=== PATIENT | female | born 1990 | race Caucasian/White ===

== ENCOUNTER 2021-01-31 10:40 | Outpatient (RCR) | payer OTHER, SELFPAY ==
[2021-02-01] MEDS: RHO(D) IMMUNE GLOBULIN 300 MCG/2 ML SYRINGE IM (08:24)
== END 2021-05-01 23:59 | disposition home or self-care (01) ==
LOC: ANHLAB 10:40
PROVIDERS: PCP Physician Assistant; Visit Provider Obstetrics & Gynecology
DX: Z29.13 Encounter for prophylactic Rho(D) immune globulin (principal); O36.0190 Maternal care for anti-D [Rh] antibodies, unspecified trimester, not applicable or unspecified; Z3A.00 Weeks of gestation of pregnancy not specified
CPT/HCPCS: 36415; 85461; 86880; 90384; 96372; J2790

== ENCOUNTER 2021-04-30 10:45 | Outpatient (RCR) | payer OTHER, SELFPAY ==
--- NOTE | ~2021-04-30 | US_ITS ---
EXAMINATION: US OB follow up w [facility] DATE: 04/30/2021 11:53 INDICATION: Postdates, third trimester TECHNIQUE: Real-time pelvic ultrasound was performed. The interpreting radiologist was not present fo r the study. COMPARISON: None. FINDINGS: There is a single living fetus in vertex presentation. The placenta is anterior. heart rate is 148 beats per minute (bpm). The amniotic fluid index is 8.9 cm which is normal Biophysical profile performed by the technologist: breathing (30 sec sustained breathing in 30 minutes): 2 out of 2 movement (3 gross body movements in 30 minutes): 2 out of 2 tone (one episode of nkjxsap-qzvjwkfks-liofluc limb movement): 2 out of 2 Amniotic fluid pocket (2 cm): 2 out of 2 Total score: 8 out of 8 The following biometric data were obtained: Biparietal diameter (BPD): 9.2 cm; head circumference (HC): 33.8 cm; abdominal circumference (AC): 35 .4 cm; femur length (FL): 7.7 cm. These measurements are concordant. Estimated weight is 3688 g +/- 553 g, which correlates with the 46th percentile when 04/25/2021 is used as estimated date of delivery. As single measurements, these parameters are each equal to the following estimated gestational ages w ith ranges of +/- 2 standard deviations: BPD: 37 weeks 4 days ( 34 weeks 3 days - 40 weeks 6 days). HC: 38 weeks 6 days ( 36 weeks 1 days - 41 weeks 4 days). AC: 39 weeks 2 days ( 36 weeks 2 days - 42 weeks 3 days). FL: 39 weeks 4 days ( 36 weeks 3 days - 42 weeks 5 days). estimated gestational age based solely on measurements from this exam is 38 weeks 6 days +/- 2 weeks 5 days. IMPRESSION: 1. Single living fetus in vertex presentation. 2. Biophysical profile 8 out of 8. 3. Estimated weight is 3688 g +/- 553 g, which correlates with the 46th percentile when 04/25/20 21 is used as estimated date of delivery. Reviewed, dictated and finalized at location A. IMPRESSION: 1. Single living fetus in vertex presentation. 2. Biophysical profile 8 out of 8. 3. Estimated weight is 3688 g +/- 553 g, which correlates with the 46th p ercentile when 04/25/2021 is used as estimated date of delivery.
[2021-04-30 12:10] VITALS: BP 132/75; PULSE 68
== END 2021-05-14 10:09 | disposition home or self-care (01) ==
LOC: ANHOBOP 10:45
PROVIDERS: PCP Physician Assistant; Visit Provider Obstetrics & Gynecology
DX: O48.0 Post-term pregnancy (principal); Z3A.40 40 weeks gestation of pregnancy
CPT/HCPCS: 59025; 76816; 76819

== ENCOUNTER 2021-05-07 14:02 | Inpatient (IN) | payer OTHER, SELFPAY ==
[2021-05-07] VITALS (7 sets, daily range): BP systolic 136–142; BP diastolic 80–81; PULSE 93–124; RESP 16–18; TEMP 36.4–36.8; BMI 39.2
[2021-05-07 16:35] LABS: Basophils Percent Auto 0.5 % (0.2-1.2); Eosinophils Absolute Auto 0.1 K/mm3 (0-0.3); Eosinophils Percent Auto 0.7 % (0-4.4); Hemoglobin 11.2 g/dL (12.0-15.0); Immature Granulocyte Absolute 0.03 K/mm3 (0.00-0.031); Immature Granulocyte Percent A 0.3 % (0-0.5); Lymphocytes Absolute Auto 1.12 K/mm3 (0.9-3.2); Lymphocytes Percent Auto 12.6 % (18.3-44.2); Mean Corpuscular Hemoglobin 27.9 pg (26-34); Mean Corpuscular Volume 87.1 fl (80-100); Mean Platelet Volume 12.7 fl (7.4-10.4); Monocytes Absolute Auto 0.5 K/mm3 (0.1-0.6); Monocytes Percent Auto 5.7 % (2.6-8.5); Neutrophils Absolute Auto 7.1 K/mm3 (1.3-6.7); Neutrophils Percent Auto 80.2 % (45.5-73.1); Platelet Count Result 166 k/mm3 (150-375); Red Blood Count 4.02 M/mm3 (4.2-5.4); Red Cell Distribution Width 14.8 % (11.5-14.5); White Blood Count 8.9 K/mm3 (4.5-10.0)
--- NOTE | 2021-05-07 17:28 | P.PNAN_ITS ---
Anes - Eval Pre Procedure Procedure: labor epidural Date/Time: 05/07/21 17:28 Surgeon: elan Preop Diagnosis: pain during labor Pre Op Diagnosis: contractions Patient Data Age: 30 Gender: F Height: 1.7 m Weight: 113.6 kg Last Vital Signs Temp 36.4 C 05/07/21 17:00 Allergies Allergy/AdvReac Type Severity Reaction Status Date / Time No Known Allergies Allergy Verified 03/25/21 13:48 Home Medications Medication Instructions Recorded Confirmed Type No Home Medications 05/07/21 05/07/21 History Laboratory Tests 05/07/21 05/07/21 16:04 16:04 WBC 8.9 K/mm3 K/mm3 (4.5-10.0) RBC 4.02 M/mm3 L M/mm3 (4.2-5.4) Hgb 11.2 g/dL L g/dL (12.0-15.0) Hct 35.0 % L % (37.0-47.0) MCV 87.1 fl fl (80-100) MCH 27.9 pg pg (26-34) MCHC 32.0 g/dl g/dl (32-36) RDW 14.8 % H % (11.5-14.5) Plt Count 166 k/mm3 k/mm3 (150-375) MPV 12.7 fl H fl (7.4-10.4) Immature Gran % (Auto) 0.3 % % (0-0.5) Neut % (Auto) 80.2 % H % (45.5-73.1) Lymph % (Auto) 12.6 % L % (18.3-44.2) Gilchrist % (Auto) 5.7 % % (2.6-8.5) Eos % (Auto) 0.7 % % (0-4.4) Baso % (Auto) 0.5 % % (0.2-1.2) Lymph # (Auto) 1.12 K/mm3 K/mm3 (0.9-3.2) Gilchrist # (Auto) 0.5 K/mm3 K/mm3 (0.1-0.6) Eos # (Auto) 0.1 K/mm3 K/mm3 (0-0.3) Baso # (Auto) 0.0 K/mm3 K/mm3 (0.0-0.1) Abs Immat Gran (auto) 0.03 K/mm3 K/mm3 (0.00-0.031) Absolute Neuts (auto) 7.1 K/mm3 H K/mm3 (1.3-6.7) Absolute Nucleated RBC 0.0 K/mm3 K/mm3 (0.0-0.012) Nucleated RBC % 0.0 % % (0.0-0.2) RPR Pending Patient hx anesthesia problems: none Family hx anesthesia problems: none [facility] Past Medical History Medical History (Updated 05/07/21 @ 17:29 by Sara Shelby CRNA) Obesity (BMI 30-39.9) Family History Family History (Updated 03/25/21 @ 13:51 by Oswald Clark RN) Grandparent Acute leukemia Father Lupus Hypertension Mother Lupus Social History Social History Smoking status: Never smoker Second hand tobacco smoke exposure: No Substance use: never Spiritual care concerns: No Exam Day of Procedure 05/07/21 17:28
[2021-05-07] MEDS: LACTATED RINGERS 1,000 ML 125 ML IV CONT (22:39)
[2021-05-08] VITALS (69 sets, daily range): BP systolic 91–174; BP diastolic 47–133; PULSE 52–114; RESP 16–18; TEMP 36.1–36.7; O2SAT 98–100
[2021-05-08] MEDS: LACTATED RINGERS 1,000 ML 125 ML IV CONT ×3 (02:01→08:26)
[2021-05-08] MEDS: OXYTOCIN 30 UNITS/NS 500 ML 30 UNITS/500 ML BAG IV CONT (04:56)
--- NOTE | 2021-05-08 08:44 | WPDOBADMIT ---
Obstetrics - Admit Note Admission Note: record reviewed. Additions to the history and/or subsequent changes in the physical findings follow. 30 y/o at 41 6/7 weeks here with contractions. Not in active labor, but NST showed a FHR deceleration last evening, so we have offered augmentation of labor. FHR has been normal since. GBS neg. AVSS NST reactive TOCO: contractions irregularly ABD soft, nontender, gravid, vertex EXT nontender Cervix 4/50/-2. AROM with clear fluid. Vertex.. A: IUP at 41 6/7 weeks with early labor. P: Oxytocin. Anticipate .
--- NOTE | 2021-05-08 12:52 | PM.OBPRVD ---
OB - Delivery Note Procedure Delivery date: 05/08/21 Procedure: Induction method: none Delivery augmentation: rupture of membranes and pitocin Delivery monitor: external FHT, external uterine and internal uterine Route of delivery: Laceration Description: None Specimen: Yes (cord blood) Quantitative Blood Loss (ml): 50 Anesthesia type: Epidural Disposition: PACU Complications: None Narrative: 30 y/o at 41 6/7 weeks gestation who presented to the hospital with contractions. Oxytocin was administered intravenously for labor augmentation. Amniotomy was performed with return of clear fluid. She received an epidural for pain control. Her labor progressed and her cervix dilated completely. She pushed with good effort and delivered the 's head to the perineum, followed by the body. The nose and mouth were bulb suctioned. After a delay, the cord was clamped and cut. The was handed off the field. Cord blood was collected. The placenta delivered spontaneously and was grossly normal in appearance. The usual 3 vessel cord was noted. The perineum was intact. Excellent hemostasis resulted as did excellent reapproximation of the normal anatomy. Needle and instrument counts were correct. The patient was taken to recovery room in stable condition. The went to the nursery in stable condition. I was present and scrubbed for the entire delivery. Baby Date of : 05/08/21 Time of : 12:15 Weeks of gestation at delivery: 41 Infant gender: Female Weight (pounds): 7 Weight (ounces): 6 presentation: vertex position: Left Occiput Anterior Placenta delivery description: Spontaneous and Normal Configuration cord vessel description: 3 Vessels and Delayed Cord Clamping score one minute: 8 score five minutes: 9
[2021-05-08] MEDS: OXYTOCIN 30 UNITS/NS 500 ML 30 UNITS/500 ML BAG 125 UNITS IV CONT (12:54)
--- NOTE | 2021-05-08 12:55 | PM.OBDSVD ---
DS: Admitting Diagnosis Discharge Date 05/10/21 Admitting Diagnosis IUP at 41 6/7 weeks Contractions DS: Discharge Diagnosis Discharge Diagnosis (1) (normal spontaneous vaginal delivery): Code(s): O80 - Encounter for full-term uncomplicated delivery Status: Acute OB - DS: Summary OB Procedures : None OB Procedures Intrapartum: Spontaneous Vag Delivery OB Procedures: : RHo (D) lg DS: Data Data Completed and Pending Labs on day of discharge: Labs from last 24 hours 05/07/21 05/07/21 05/07/21 16:04 16:04 16:04 WBC 8.9 RBC 4.02 L Hgb 11.2 L Hct 35.0 L MCV 87.1 MCH 27.9 MCHC 32.0 RDW 14.8 H Plt Count 166 MPV 12.7 H Immature Gran % (Auto) 0.3 Neut % (Auto) 80.2 H Lymph % (Auto) 12.6 L [place] % (Auto) 5.7 Eos % (Auto) 0.7 Baso % (Auto) 0.5 Lymph # (Auto) 1.12 [place] # (Auto) 0.5 Eos # (Auto) 0.1 Baso # (Auto) 0.0 Abs Immat Gran (auto) 0.03 Absolute Neuts (auto) 7.1 H Absolute Nucleated RBC 0.0 Nucleated RBC % 0.0 RPR Pending Blood Type B Negative Antibody Screen Positive Antibody Identification Anti-D Antigen Identification Cancelled GOPI, IgG Interpret Not Performed GOPI, Poly Interpret Negative GOPI, Complement Interp Not Performed Enhanced Crossmatch See Detail Discharge Plan Discharge Attending physician on discharge: Jose Martin Rogers Discharging Clinician: Jose Martin Rogers Anticipated Discharge Date/Time: 05/10/21 11:30 Patient Disposition: Home, Self-Care Activity: pelvic rest Diet: regular Discharge Instructions: Education: Mom and Baby Guide Given to: Mother Follow-Up: Call your delivering provider's office for an appointment to be seen in: 6 Weeks Mom and baby should come to the [facility] for the follow-up appointment. Appointment Date/Time: May 13, 2021 at 9:00 am What to expect at your follow-up visit: Physical Assessment Call [phone] if you are unable to keep your appointment time. BREAST CARE: * Wear a snug supportive bra. * For engorgement discomfort: Breast Feeding: * Apply warm moist washcloths * Express milk as needed to relieve engorgement * Wear loose clothing Bottle Feeding: * May apply ice packs * For sore nipples: * Identify correct latch-on * Apply warm moist washcloths before and after nursing * Air dry nipples after nursing * May apply Lansinoh cream to nipples ABDOMINAL INCISION: (if applicable) * Allow incision to air dry * Do NOT use lotions for powders on your incision * When showering, allow soap and water to run over the incision, but do not wash incision EPISIOTOMY/PERINEAL CARE: * Until bleeding stops, use your lilly bottle after urinating * Change your pad frequently throughout the day * You may take sitz baths several times a day (fill your bathtub with warm water and soak for 20 minutes.) Do NOT bathe in the water * No tub baths until seen by your physician - You may shower ACTIVITY: * Rest as much as possible. * Do not exercise or lift anything heavier than your baby (such as laundry or other children.) * Avoid stairs or driving as much as possible. * Do not put anything into the vagina. No douching, tampons, or sexual activity until seen by physician. NOTIFY PHYSICIAN IF YOU HAVE ANY QUESTIONS OR IF ANY OF THE FOLLOWING SYMPTOMS OCCUR: * If your episiotomy or incision becomes red, swollen, or more painful than what you have experienced in the hospital. * If your vaginal bleeding becomes foul smelling. * If your vaginal bleeding becomes more heavy than a period or if your bleeding changes from pink to bright red. However, you may pass an occasional walnut-sized clot once or twice for the first week . * If you experience a sharp, shooting pain in you calves. * If
--- NOTE | 2021-05-08 15:35 | PC.NURSE ---
Patient transferred to post room #290 per wheelchair from labor and delivery. Support person present. Oriented to unit, room, information board, rooming in, admission packet and security measures. Patient verbalizes understanding.
[2021-05-08] MEDS: IBUPROFEN 600 MG TABLET PO ×2 (15:51→22:26)
[2021-05-09] VITALS: BP 122/79; PULSE 89; RESP 16; TEMP 36.7; O2SAT 100
[2021-05-09 04:00] VITALS: BP 126/86; PULSE 71; RESP 16; TEMP 36.6; O2SAT 100
[2021-05-09 04:27] LABS: Hematocrit 29.6 % (37.0-47.0); Hemoglobin 9.6 g/dL (12.0-15.0)
[2021-05-09] MEDS: POLYSACCHARIDE IRON COMPLEX 150 MG CAPSULE PO ×2 (08:05→17:24)
[2021-05-09] MEDS: DOCUSATE SODIUM 100 MG CAPSULE PO ×2 (08:05→17:24)
[2021-05-09] MEDS: IBUPROFEN 600 MG TABLET PO ×3 (08:05→20:58)
[2021-05-09] MEDS: MULTIVIT/MIN/PREN/FOL AC/IRON TABLET 1 TAB PO (08:05)
[2021-05-09 08:55] VITALS: BP 133/86; PULSE 72; RESP 18; O2SAT 99
--- NOTE | 2021-05-09 09:52 | WPDANLDPN2 ---
Anes-Prog Note L&D Date/Time: 05/09/21 09:52 Comfortable throughout: labor and delivery Neuraxial method: epidural Epidural/Spinal procedure site: clean & non-tender Neuro status: Neuro function grossly intact. Cardiovascular status: normal Respiratory status: normal Airway patency: baseline Mental status: baseline Post-Op hydration status: normal Vital Signs: Last Vital Signs Temp 36.6 C 05/09/21 04:00 Pulse 72 05/09/21 08:55 Resp 18 05/09/21 08:55 BP 133/86 05/09/21 08:55 Pulse Ox 99 05/09/21 08:55 Pain score (VAS): 09/08 I/O: Intake & Output 05/08/21 05/09/21 05/09/21 23:59 07:59 15:59 Intake Total 450 Balance 450 Post-procedural complaints: none Patient feedback: Patient satisfied with anesthetic care.
--- NOTE | 2021-05-09 10:35 | PC.NURSE ---
Mother called out for assist with feeding, reporting has been sleepy and spitty during the night. Mother initiated pumping due to long periods between feedings and has supplemented. Infant had a large mucus spit up after feeding with formula. Infant is able to freely thrust tongue past gum ridge and flange both lips. Skin is intact on both nipples, no redness and bruising noted. Reviewed infant feeding cues, frequencies, duration of feedings, feeding elimination flow sheet, and signs of adequate intake. Demonstrated stimulation techniques to wake for feeding. Assisted with to breast. Reviewed positioning/alignment in cross cradle, holding breast in ?U? hold and guided asymmetrical latch on. Discussed rational for each. Infant able to latch correctly. Reviewed signs of a correct latch, effective nursing and suck swallow ratio. Infant nursed eagerly, with steady draws and frequent swallowing noted. Reviewed the difference of effective vs ineffective nursing. Suggested mother stimulate while feeding to increase stimulation, increase intake and to assist with maintaining deep latch. was able to maintain latch without discomfort to mother. Mother does not maintain U hold while feeding. Suggested mother return to hold if is unable to maintain latch or she has discomfort Demonstrated how to adjust latch more deeply while feeding. Nipple care reviewed of lanolin after feedings, warm compresses as needed. Discussed mother does not need to pump if is effective feeding 15 minutes every three hours. Instructed mother to call out for RN assistance if she is unable to latch infant for feeding or she has discomfort with nursing. Instructed feeding should be initiated three hours from start of last feeding or if feeding cues are noted before. Mother voiced understanding of information shared.
[2021-05-09 10:40] LABS: Rapid Plasma Reagin Non-Reactive (NonReactive)
[2021-05-09] MEDS: RHO(D) IMMUNE GLOBULIN 300 MCG/2 ML SYRINGE IM (11:42)
[2021-05-09 12:35] VITALS: BP 127/71; PULSE 69; RESP 18; TEMP 36.3; O2SAT 99
--- NOTE | 2021-05-09 12:46 | PM.OBPNVD ---
OB - PN: Subj Subjective Date/time seen: 05/09/21 12:46 Narrative: Pain OK. OB - PN: Obj Data Labs CBC & Chem 7: 05/09/21 03:12 Labs: Laboratory Results - last 24 hr 05/07/21 05/07/21 05/09/21 16:04 16:04 03:12 Hgb 9.6 L Hct 29.6 L RPR Non-reactive Blood Type Antibody Screen Antibody Identification Antigen Identification Cancelled GOPI, IgG Interpret GOPI, Poly Interpret GOPI, Complement Interp Screen Baby's Blood Type Baby's GOPI Doses of RhIg Required Enhanced Crossmatch See Detail 05/09/21 03:12 Hgb Hct RPR Blood Type B Negative Antibody Screen TNP Antibody Identification TNP Antigen Identification TNP GOPI, IgG Interpret Not Performed GOPI, Poly Interpret TNP GOPI, Complement Interp TNP Screen Negative Baby's Blood Type Ab pos Baby's GOPI Positive Doses of RhIg Required 1 Enhanced Crossmatch OB - PN A/P Plan Comments: A: PPD#1, doing well. P: Routine care. Exam Psych: Other: AVSS ABD soft, nontender, fundus firm EXT nontender
[2021-05-09 20:00] VITALS: BP 120/87; PULSE 76; RESP 16; TEMP 36.6; O2SAT 98
--- NOTE | 2021-05-10 07:11 | PM.OBPNVD ---
OB - PN: Subj Subjective Date/time seen: 05/10/21 07:11 Patient comments: no complaints and pain well controlled baby status: doing well and nursing well OB - PN: Obj Data Labs CBC & Chem 7: 05/09/21 03:12 Labs: Laboratory Results - last 24 hr 05/07/21 05/07/21 05/09/21 16:04 16:04 03:12 RPR Non-reactive Blood Type B Negative Antibody Screen TNP Antibody Identification TNP Antigen Identification Cancelled TNP GOPI, Poly Interpret TNP GOPI, Complement Interp TNP Screen Negative Baby's Blood Type Ab pos Baby's GOPI Positive Doses of RhIg Required 1 Enhanced Crossmatch See Detail OB - PN A/P Plan day: 2 Plan: routine care, discharge home and follow up 6 weeks Time Spent With Patient Time: Total time spent is greater than 50% in coordination of care (as documented) at patient's floor/unit and/or counseling patient: Time with patient: less than 15 minutes Review of Systems Review of Systems: All systems reviewed & are unremarkable except as noted in HPI and below Exam Const: General: no acute distress Eyes: General: appearance normal, both eyes and all related structures Neck: Neck: supple and no JVD Thyroid: thyroid normal Resp: Effort & Inspection: normal respiratory effort Auscultation: clear to auscultation bilaterally Cardio: Rate: regular rate Rhythm: regular rhythm GI: Inspection: non-distended GI Palp: Yes Soft to palpation, No Tenderness to palpation present (GI) and No Guarding due to palpation present (GI) Auscultation: normal bowel sounds : General: Yes bladder normal to palpation External Female Exam: normal external appearance Speculum Exam - Vagina: normal vaginal discharge and No vaginal bleeding Speculum Exam - Cervix: nontender Bimanual exam- vagina & uterus: bladder normal to palpation and No Cervical tenderness present OB/external & speculum: No vaginal bleeding Skin: General skin exam: no rashes or lesions noted Extrem: General: normal to inspection and no edema Psych: Mental Status: mental status grossly normal Affect: normal affect
[2021-05-10] MEDS: WITCH HAZEL 40 PADS 1 PAD TOPICAL (08:22)
[2021-05-10] MEDS: DOCUSATE SODIUM 100 MG CAPSULE PO (08:23)
[2021-05-10] MEDS: POLYSACCHARIDE IRON COMPLEX 150 MG CAPSULE PO (08:23)
[2021-05-10] MEDS: MULTIVIT/MIN/PREN/FOL AC/IRON TABLET 1 TAB PO (08:23)
[2021-05-10] MEDS: IBUPROFEN 600 MG TABLET PO (08:24)
[2021-05-10 08:27] VITALS: BP 130/86; PULSE 74; RESP 18; TEMP 36.2; O2SAT 100
[2021-05-13 08:40] VITALS: BP 128/72; PULSE 66; RESP 16; TEMP 36.7; O2SAT 98
== END 2021-05-10 11:53 | disposition home or self-care (01) | DRG 560 ==
LOC: ANHLDR 05-08 12:56 → ANHOB2 05-10 11:12 → ANHLDR 05-13 09:15 → ANHOB2 05-13 09:15
PROVIDERS: Obstetrics & Gynecology; Admitting Provider Student in an Organized Health Care Education/Training Program; PCP Physician Assistant; Visit Provider Obstetrics & Gynecology
DX: O76 Abnormality in fetal heart rate and rhythm complicating labor and delivery (principal); Z37.0 Single live birth; Z3A.41 41 weeks gestation of pregnancy
CPT/HCPCS: 36415; 85014; 85018; 85025; 85461; 86592; 86850; 86880; 86900; 86901; 86922; 90384; A9270; J2590; J2790; J2795; J7120

== ENCOUNTER 2021-06-13 13:30 | Outpatient (RCR) | payer OTHER, SELFPAY ==
--- NOTE | 2021-06-13 14:15 | PC.NURSE ---
IN 0945 OUT 1050 HISTORY: Pt. delivered at [facility] at 39 weeks. had no complications after delivery. Mother had no complications after delivery. Infant is now 36 days old. Infant appears to be well cared for. Infant has been seen by ICP as scheduled. Infant last seen by ICP on 06/12/2021. Mother reports: Currently at 6 wets per day and 3 /brown yellow pasty slightly seedy stools per day. weight: 7#6 Discharge weight: 6#14 Last Weight:8#4 at ICP Infant feeding well at hospital and when home. Mother states has been fussy at times after feedings. At 4 weeks infant had a few days of constant feeding and slowing down on stool, with no watery explosive stools like other children. At 3 week [facility] appointment infant weight was 7#4. A pre and post weight was done. Mother reports fed 1 oz from each breast and was able to pump 1 oz after from both. Mother was concerned with weight and began pumping and bottle feeding after . has been fussy the last week with and is only at breast a few minutes with on and off feedings. Mother has heard and seen swallowing the few minutes she is at breast. Mother has had to use formula for some of feedings as infant is not satisfied. Mother states the last few feedings infant will only breastfed a few minutes. Mother wishes: To increase supply for to nurse and discontinue pumping and bottle feeding. OBSERVATION: Pre feeding weight: 3830 Post feeding weight: Tongue is able to move freely past gum ridge, both lips flange easily, palate is high. Mother has everted nipples with skin intact no redness, blisters, scabbing or abrasions noted. Mother is tearful and reports she is very tired and overwhelmed with infant feeding. Mother states she is constantly feeding or pumping and unable to keep her fluid and nutrition up. Mother puts to breast in football positioning, holding breast in C hold and using guided asymmetrical latch. is only able to latch to nipple only. Mother has large everted nipples. Infant nurses eagerly with a short chewy suck, she will pull back and release latch. Mother denies discomfort with latch and feeding. is unable to draw entire nipple in deeply. Assisted with a deeper latch by compressing and guiding nipple deeply. Once done gags and will pull back quickly to return to short chewy suck. Reviewed signs of a correct latch, effective nursing and suck swallow ratio. Discussed the difference of effective vs ineffective feeding. Reviewed is latching with good burst of suckling, she is not feeding consistently with adequate milk transfer at this time and continues to need to be supplement with EBM/formula after . Feeding options discussed of mother will pump every three hours for 15-20 minutes giving infant as much as she desires per feeding of EBM/formula. Mother will attempt infant to breast a few times each day. Plan is to allow mother to have rest between feedings and to allow breasts to refill and increase milk supply for next pumping session. If begins to nurse effectively with long draws and frequent swallowing noted, may decrease supplementation and discontinue pumping. Suggested mother have LC deodorizer operator observe feeding before discontinuing supplementation. Discussed increasing supplementation as requires to satisfactions. Reviewed paced feeding and suggested to stop when is satisfied, as long as infant is having required output. With increased supplementation infant may not want to feed for 4 hours. Mother will continue to pump on feeding schedule and will increase session to 20 minutes if pumping every 4 hours. Reviewed formula preparation. Mother is content with feeding plans and slightly concerned with formula use. Reviewed rest and a more
== END 2021-09-11 13:55 | disposition home or self-care (01) ==
LOC: ANHOBOP 13:30
PROVIDERS: PCP Physician Assistant; Visit Provider Obstetrics & Gynecology
DX: Z39.1 Encounter for care and examination of lactating mother (principal)
CPT/HCPCS: 99212; G0463